=== PATIENT | female | born 1945 | race Caucasian/White ===

== ENCOUNTER 2022-06-08 20:54 | Emergency (ER) | payer MEDICARE, OTHER ==
[2022-06-08 22:47] LABS: ALT (SGPT) 7 U/L (8-55); AST (SGOT) 20 U/L (5-34); Albumin 3.9 g/dL (3.4-4.8); Alkaline Phosphatase 117 U/L (40-110); Anion Gap 14 mmol/L (10-20); BUN (Urea Nitrogen) 9 mg/dL (9.8-20.1); Bilirubin, Total 1.1 mg/dL (0.2-1.2); Calc. Creatinine Clearance 0 mL/min (70-130); Carbon Dioxide 32 mmol/L (23-31); Chloride 101 mmol/L (98-107); Estimated GFR 73; Globulin 3.8 g/dL (2.4-3.5); Glucose 116 mg/dL (83-110); Lipase 47 U/L (8-78); Potassium 3.2 mmol/L (3.5-5.1); Protein, Total 7.7 g/dL (5.8-8.1); Sodium 144 mmol/L (136-145)
[2022-06-08 22:52] LABS: #Eosinphils 0.1 thou/uL (0.0-0.7); #Lymphocytes 2.1 thou/uL (1.20-3.40); #Monocytes 0.7 thou/uL (0.11-0.59); #Neutrophils 4.8 thou/uL (1.40-6.50); %Basophils 0.4 % (0.0-1.0); %Eosinophils 1.7 % (0.0-10.0); %Lymphocytes 27.2 % (21.0-51.0); %Monocytes 8.7 % (0.0-10.0); %Neutrophils 61.9 % (42.0-75.0); Hemoglobin 16.2 g/dL (12.0-16.0); Mean Corpuscular HGB CONC 33.7 g/dL (32.0-36.0); Mean Platelet Volume 7.9 fL (7.4-10.4); Platelet Count 241 10x3/uL (130-400); RBC Distribution Width 12.7 % (11.5-14.5); Red Blood Cell (RBC) Count 5.22 mill/uL (4.20-5.40); White Blood Cell (WBC) Count 7.8 10x3/uL (4.8-10.8)
== END 2022-06-09 00:03 | disposition home or self-care (01) ==
LOC: ERS 20:54
DX: L03.115 Cellulitis of right lower limb (principal); I10 Essential (primary) hypertension; Z79.01 Long term (current) use of anticoagulants
CPT/HCPCS: 36415; 80053; 83690; 85025; 87040

== ENCOUNTER 2022-06-14 15:47 | Inpatient (IN) | payer MEDICARE, OTHER ==
[2022-06-14] MEDS ORDERED: Ketorolac Tromethamine 30 MG/ML VIAL ONE (16:34)
[2022-06-14] MEDS ORDERED: Metoprolol Tartrate 5 MG/5 ML VIAL ONE (16:34)
[2022-06-14] MEDS ORDERED: Magnesium 2 GM/50 ML BAG (IN WATER) ONE (16:34)
[2022-06-14 16:37] LABS: #Basophils 0.1 thou/uL (0.0-0.2); #Monocytes 1.1 thou/uL (0.11-0.59); %Basophils 0.4 % (0.0-1.0); %Eosinophils 0.3 % (0.0-10.0); %Lymphocytes 12.5 % (21.0-51.0); %Monocytes 7.2 % (0.0-10.0); %Neutrophils 79.2 % (42.0-75.0); Hemoglobin 16.1 g/dL (12.0-16.0); Mean Corpuscular HGB CONC 33.2 g/dL (32.0-36.0); Mean Corpuscular Volume 90.3 fl (78.0-98.0); Mean Platelet Volume 9.9 fL (7.4-10.4); Platelet Count 239 10x3/uL (130-400); RBC Distribution Width 13.2 % (11.5-14.5); Red Blood Cell (RBC) Count 5.37 mill/uL (4.20-5.40); White Blood Cell (WBC) Count 15.1 10x3/uL (4.8-10.8)
[2022-06-14 17:07] LABS: ALT (SGPT) 9 U/L (8-55); AST (SGOT) 22 U/L (5-34); Albumin 4.1 g/dL (3.4-4.8); Alkaline Phosphatase 132 U/L (40-110); Anion Gap 18 mmol/L (10-20); BUN (Urea Nitrogen) 7 mg/dL (9.8-20.1); Bilirubin, Total 1.5 mg/dL (0.2-1.2); Calc. Creatinine Clearance 0 mL/min (70-130); Calcium 10.2 mg/dL (7.8-10.44); Carbon Dioxide 27 mmol/L (23-31); Chloride 101 mmol/L (98-107); Estimated GFR 66; Globulin 4.4 g/dL (2.4-3.5); Glucose 145 mg/dL (83-110); Magnesium 1.4 mg/dL (1.6-2.6); Potassium 3.9 mmol/L (3.5-5.1); Protein, Total 8.5 g/dL (5.8-8.1); Sodium 142 mmol/L (136-145)
[2022-06-14 17:19] LABS: INR-International Normal Ratio 1.3; PTT 33.5 sec (22.9-36.1); Prothrombin Time 17.2 sec (12.0-14.7)
[2022-06-14 17:22] LABS: D-Dimer Test 1.02 *mcg/mL (0.27-0.43)
[2022-06-14] MEDS ORDERED: Vancomycin 1 GM/200 ML (FROZEN) BAG ONE (18:02)
[2022-06-14] MEDS ORDERED: Ondansetron PF 4 MG/2 ML Vial IVP PRN (18:47)
[2022-06-14] MEDS ORDERED: Senokot S 8.6-50 MG TAB PO PRN (18:47)
[2022-06-14] MEDS ORDERED: Calcium Carbonate 500 MG ChewTAB PO PRN (18:47)
[2022-06-14] MEDS ORDERED: Ondansetron ODT 4 MG TAB PO PRN (18:47)
[2022-06-14] MEDS ORDERED: cefTRIAXone (ROCEPHIN) 2 GM VIAL ONE (20:28)
[2022-06-14 20:54] LABS: CKMB 0.6 ng/mL (0-6.6)
[2022-06-14] MEDS ORDERED: Sodium Chloride 0.9% 1,000 ML IV SCH (21:15)
[2022-06-14] MEDS: Apixaban 5 MG TAB PO SCH (22:15)
[2022-06-14 22:25] VITALS: BMI 33.0
[2022-06-15 00:19] LABS: Lactic Acid 3.1 mmol/L (0.5-2.2)
[2022-06-15] MEDS ORDERED: Ibuprofen 200 MG TAB PO SCH (01:00)
[2022-06-15] MEDS ORDERED: Sodium Chloride 0.9% 1,000 ML IV SCH (01:00)
[2022-06-15 04:53] LABS: #Basophils 0.1 thou/uL (0.0-0.2); #Monocytes 1.5 thou/uL (0.11-0.59); #Neutrophils 10.7 thou/uL (1.40-6.50); %Basophils 0.4 % (0.0-1.0); %Eosinophils 0.1 % (0.0-10.0); %Lymphocytes 14.4 % (21.0-51.0); %Monocytes 10.5 % (0.0-10.0); %Neutrophils 74.1 % (42.0-75.0); Hemoglobin 13.7 g/dL (12.0-16.0); Mean Corpuscular HGB CONC 32.4 g/dL (32.0-36.0); Mean Corpuscular Hemoglobin 29.3 pg (27.0-31.0); Mean Corpuscular Volume 90.4 fl (78.0-98.0); Mean Platelet Volume 10.3 fL (7.4-10.4); Platelet Count 229 10x3/uL (130-400); RBC Distribution Width 13.2 % (11.5-14.5); Red Blood Cell (RBC) Count 4.68 mill/uL (4.20-5.40); White Blood Cell (WBC) Count 14.4 10x3/uL (4.8-10.8)
[2022-06-15 05:09] LABS: Lactic Acid 1.2 mmol/L (0.5-2.2)
[2022-06-15 05:16] LABS: ALT (SGPT) 8 U/L (8-55); AST (SGOT) 17 U/L (5-34); Albumin 3.3 g/dL (3.4-4.8); Alkaline Phosphatase 111 U/L (40-110); Anion Gap 13 mmol/L (10-20); BUN (Urea Nitrogen) 7 mg/dL (9.8-20.1); Bilirubin, Total 1.4 mg/dL (0.2-1.2); Calc. Creatinine Clearance 97 mL/min (70-130); Calcium 8.8 mg/dL (7.8-10.44); Carbon Dioxide 27 mmol/L (23-31); Chloride 104 mmol/L (98-107); Estimated GFR 89; Globulin 3.5 g/dL (2.4-3.5); Glucose 134 mg/dL (83-110); Magnesium 1.7 mg/dL (1.6-2.6); Potassium 2.8 mmol/L (3.5-5.1); Protein, Total 6.8 g/dL (5.8-8.1); Sodium 141 mmol/L (136-145)
[2022-06-15] MEDS ORDERED: Potassium Chloride 20 MEQ TAB PO SCH ×2 (08:00→15:45)
[2022-06-15] MEDS ORDERED: Electrolyte Replacement Protocol FS PRN (08:00)
[2022-06-15] MEDS ORDERED: Magnesium 2 GM/50 ML(in water) 2 GM in Premix Bag 1 BAG IVPB SCH (08:00)
[2022-06-15] MEDS ORDERED: Electrolyte Replacement Protocol 1 EACH FS SCH (08:00)
[2022-06-15] MEDS: Furosemide 20 MG TAB PO SCH (08:43)
[2022-06-15] MEDS: Anastrozole 1 MG TAB PO SCH (08:43)
[2022-06-15] MEDS: Apixaban 5 MG TAB PO SCH ×2 (08:43→20:53)
[2022-06-15] MEDS ORDERED: Lisinopril 20 MG TAB PO SCH (09:00)
[2022-06-15] MEDS: Potassium Chloride 20 MEQ in Premix Bag 1 BAG IVPB SCH ×2 (09:36→14:48)
[2022-06-15] MEDS: VANCOMYCIN 1.25 GM/250 ML BAG 1.25 GM in Premix Bag 1 BAG IVPB SCH (09:36)
[2022-06-15 16:13] LABS: Potassium 3.5 mmol/L (3.5-5.1)
[2022-06-15] MEDS: Ibuprofen 100 MG/5 ML UDCUP PO PRN ×2 (16:21→23:58)
[2022-06-15] MEDS: cefTRIAXone\\ROCEPHIN 1 GM in Sodium Chloride 0.9% 100 ML IVPB SCH (17:43)
[2022-06-15] MEDS: cloNIDine 0.1 MG TAB PO PRN ×2 (17:43→23:58)
[2022-06-15] MEDS: Oxybutynin 5 MG TAB PO SCH (20:53)
[2022-06-15] MEDS: Acetaminophen 325 MG TAB PO PRN (22:07)
[2022-06-16 04:36] LABS: #Basophils 0.1 thou/uL (0.0-0.2); #Eosinphils 0.1 thou/uL (0.0-0.7); #Monocytes 1.3 thou/uL (0.11-0.59); #Neutrophils 10.1 thou/uL (1.40-6.50); %Basophils 0.5 % (0.0-1.0); %Eosinophils 0.5 % (0.0-10.0); %Lymphocytes 14.3 % (21.0-51.0); %Monocytes 9.9 % (0.0-10.0); %Neutrophils 74.3 % (42.0-75.0); Hemoglobin 14.3 g/dL (12.0-16.0); Mean Corpuscular HGB CONC 32.3 g/dL (32.0-36.0); Mean Corpuscular Volume 89.9 fl (78.0-98.0); Mean Platelet Volume 10.3 fL (7.4-10.4); Platelet Count 207 10x3/uL (130-400); RBC Distribution Width 13.3 % (11.5-14.5); Red Blood Cell (RBC) Count 4.93 mill/uL (4.20-5.40); White Blood Cell (WBC) Count 13.6 10x3/uL (4.8-10.8)
[2022-06-16 04:58] LABS: Anion Gap 12 mmol/L (10-20); BUN (Urea Nitrogen) 10 mg/dL (9.8-20.1); Calc. Creatinine Clearance 91 mL/min (70-130); Calcium 9.1 mg/dL (7.8-10.44); Carbon Dioxide 25 mmol/L (23-31); Chloride 108 mmol/L (98-107); Estimated GFR 82; Glucose 152 mg/dL (83-110); Magnesium 1.8 mg/dL (1.6-2.6); Potassium 3.8 mmol/L (3.5-5.1); Sodium 141 mmol/L (136-145)
[2022-06-16] MEDS ORDERED: Magnesium 2 GM/50 ML(in water) 2 GM in Premix Bag 1 BAG IVPB SCH (08:00)
[2022-06-16] MEDS ORDERED: NIFEdipine XL 60 MG TAB PO SCH (09:00)
[2022-06-16] MEDS: VANCOMYCIN 1.25 GM/250 ML BAG 1.25 GM in Premix Bag 1 BAG IVPB SCH (09:57)
[2022-06-16] MEDS: Anastrozole 1 MG TAB PO SCH (09:58)
[2022-06-16] MEDS: Lisinopril 20 MG TAB PO SCH ×2 (09:58→21:06)
[2022-06-16] MEDS: Apixaban 5 MG TAB PO SCH ×2 (09:58→21:06)
[2022-06-16] MEDS: Furosemide 20 MG TAB PO SCH (09:58)
[2022-06-16] MEDS ORDERED: Furosemide 20 MG/2 ML VIAL SLOW IVP SCH (12:00)
[2022-06-16] MEDS ORDERED: Potassium Chloride 20 MEQ TAB PO SCH (12:00)
[2022-06-16] MEDS: cefTRIAXone\\ROCEPHIN 1 GM in Sodium Chloride 0.9% 100 ML IVPB SCH (17:33)
[2022-06-16] MEDS: Oxybutynin 5 MG TAB PO SCH (21:07)
[2022-06-16] MEDS: Ketorolac Tromethamine 30 MG/ML VIAL IVP PRN (21:07)
[2022-06-17 04:41] LABS: #Basophils 0.1 thou/uL (0.0-0.2); #Eosinphils 0.2 thou/uL (0.0-0.7); #Neutrophils 9.9 thou/uL (1.40-6.50); %Basophils 0.5 % (0.0-1.0); %Eosinophils 1.4 % (0.0-10.0); %Lymphocytes 12.6 % (21.0-51.0); Hemoglobin 14.1 g/dL (12.0-16.0); Mean Corpuscular HGB CONC 31.8 g/dL (32.0-36.0); Mean Corpuscular Hemoglobin 30.4 pg (27.0-31.0); Mean Platelet Volume 10.4 fL (7.4-10.4); Platelet Count 216 10x3/uL (130-400); RBC Distribution Width 13.6 % (11.5-14.5); Red Blood Cell (RBC) Count 4.64 mill/uL (4.20-5.40); White Blood Cell (WBC) Count 12.9 10x3/uL (4.8-10.8)
[2022-06-17 04:56] LABS: Mean Corpuscular Volume 95.5 fl (78.0-98.0)
[2022-06-17 05:08] LABS: Anion Gap 13 mmol/L (10-20); BUN (Urea Nitrogen) 18 mg/dL (9.8-20.1); Calc. Creatinine Clearance 82 mL/min (70-130); Calcium 9.2 mg/dL (7.8-10.44); Carbon Dioxide 22 mmol/L (23-31); Chloride 105 mmol/L (98-107); Estimated GFR 73; Glucose 197 mg/dL (83-110); Potassium 4.5 mmol/L (3.5-5.1); Sodium 135 mmol/L (136-145)
[2022-06-17] MEDS: Ketorolac Tromethamine 30 MG/ML VIAL IVP PRN (05:49)
[2022-06-17] MEDS ORDERED: Furosemide 20 MG/2 ML VIAL SLOW IVP SCH (06:15)
[2022-06-17 08:14] LABS: Vancomycin, Trough 9.2 ug/mL
[2022-06-17] MEDS: Anastrozole 1 MG TAB PO SCH (09:29)
[2022-06-17] MEDS: Lisinopril 20 MG TAB PO SCH ×2 (09:29→20:27)
[2022-06-17] MEDS: Apixaban 5 MG TAB PO SCH ×2 (09:30→20:27)
[2022-06-17] MEDS: NIFEdipine XL 30 MG TAB PO SCH (09:30)
[2022-06-17] MEDS: Furosemide 20 MG TAB PO SCH (09:30)
[2022-06-17] MEDS: Vancomycin 1.5 GRAM/300 ML BAG 1.5 GM in Premix Bag 1 BAG IVPB SCH (09:31)
[2022-06-17] MEDS: Acetaminophen 325 MG TAB PO PRN (13:47)
[2022-06-17] MEDS ORDERED: predniSONE 20 MG TAB PO SCH (14:15)
[2022-06-17] MEDS ORDERED: Colchicine 0.6 MG TAB PO SCH (14:15)
[2022-06-17] MEDS: cefTRIAXone\\ROCEPHIN 1 GM in Sodium Chloride 0.9% 100 ML IVPB SCH (17:13)
[2022-06-17] MEDS: Oxybutynin 5 MG TAB PO SCH (20:27)
[2022-06-18] MEDS: Apixaban 5 MG TAB PO SCH ×2 (09:05→21:13)
[2022-06-18] MEDS: NIFEdipine XL 30 MG TAB PO SCH (09:05)
[2022-06-18] MEDS: Vancomycin 1.5 GRAM/300 ML BAG 1.5 GM in Premix Bag 1 BAG IVPB SCH (09:06)
[2022-06-18] MEDS: Lisinopril 20 MG TAB PO SCH ×2 (09:06→21:13)
[2022-06-18] MEDS: Anastrozole 1 MG TAB PO SCH (09:06)
[2022-06-18] MEDS ORDERED: Colchicine 0.6 MG TAB PO SCH (13:30)
[2022-06-18] MEDS: cefTRIAXone\\ROCEPHIN 1 GM in Sodium Chloride 0.9% 100 ML IVPB SCH (17:48)
[2022-06-18] MEDS: Oxybutynin 5 MG TAB PO SCH (21:12)
[2022-06-18] MEDS: Colchicine 0.6 MG TAB PO SCH (21:13)
[2022-06-18] MEDS: Ketorolac Tromethamine 30 MG/ML VIAL IVP PRN (23:58)
[2022-06-19 08:10] LABS: Vancomycin, Trough 8.7 ug/mL
[2022-06-19] MEDS: Ketorolac Tromethamine 30 MG/ML VIAL IVP PRN (09:17)
[2022-06-19] MEDS: Apixaban 5 MG TAB PO SCH ×2 (09:17→20:33)
[2022-06-19] MEDS: Lisinopril 20 MG TAB PO SCH ×2 (09:22→20:31)
[2022-06-19] MEDS: Colchicine 0.6 MG TAB PO SCH ×2 (09:23→20:33)
[2022-06-19] MEDS: NIFEdipine XL 30 MG TAB PO SCH (09:24)
[2022-06-19] MEDS: VANCOMYCIN 1.25 GM/250 ML BAG 1.25 GM in Premix Bag 1 BAG IVPB SCH ×2 (09:24→20:34)
[2022-06-19] MEDS: Anastrozole 1 MG TAB PO SCH (09:24)
[2022-06-19] MEDS ORDERED: predniSONE 20 MG TAB PO SCH (11:00)
[2022-06-19] MEDS ORDERED: NIFEdipine XL 30 MG TAB PO SCH (17:00)
[2022-06-19] MEDS: cefTRIAXone\\ROCEPHIN 1 GM in Sodium Chloride 0.9% 100 ML IVPB SCH (17:52)
[2022-06-19] MEDS: Lidocaine 4% Patch TD SCH (17:53)
[2022-06-19] MEDS: Pantoprazole 40 MG GRANULES PACKET PO SCH (20:34)
[2022-06-19] MEDS: Oxybutynin 5 MG TAB PO SCH (20:34)
[2022-06-20] MEDS: Transdermal Patch Removal TOP SCH (06:42)
[2022-06-20] MEDS ORDERED: Lidocaine 4% Patch TD SCH (09:00)
[2022-06-20] MEDS: predniSONE 20 MG TAB PO SCH (10:44)
[2022-06-20] MEDS: Lisinopril 20 MG TAB PO SCH ×2 (10:46→22:12)
[2022-06-20] MEDS: Apixaban 5 MG TAB PO SCH ×2 (10:46→22:12)
[2022-06-20] MEDS: Anastrozole 1 MG TAB PO SCH (10:46)
[2022-06-20] MEDS: VANCOMYCIN 1.25 GM/250 ML BAG 1.25 GM in Premix Bag 1 BAG IVPB SCH (10:50)
[2022-06-20] MEDS: NIFEdipine XL 60 MG TAB PO SCH (10:51)
[2022-06-20] MEDS: Colchicine 0.6 MG TAB PO SCH ×2 (10:52→22:15)
[2022-06-20] MEDS: cefTRIAXone\\ROCEPHIN 1 GM in Sodium Chloride 0.9% 100 ML IVPB SCH (17:36)
[2022-06-20] MEDS: Lidocaine 4% Patch TD SCH (17:37)
[2022-06-20] MEDS: Pantoprazole 40 MG GRANULES PACKET PO SCH (22:12)
[2022-06-20] MEDS: Cefdinir 300 MG CAP PO SCH (22:12)
[2022-06-20] MEDS: Oxybutynin 5 MG TAB PO SCH (22:15)
[2022-06-21 05:10] LABS: #Basophils 0.1 thou/uL (0.0-0.2); #Eosinphils 0.3 thou/uL (0.0-0.7); #Monocytes 1.5 thou/uL (0.11-0.59); #Neutrophils 9.1 thou/uL (1.40-6.50); %Basophils 0.5 % (0.0-1.0); %Eosinophils 2.4 % (0.0-10.0); %Lymphocytes 17.7 % (21.0-51.0); %Monocytes 10.7 % (0.0-10.0); %Neutrophils 67.6 % (42.0-75.0); Hemoglobin 14.8 g/dL (12.0-16.0); Mean Corpuscular HGB CONC 32.2 g/dL (32.0-36.0); Mean Corpuscular Hemoglobin 29.4 pg (27.0-31.0); Mean Corpuscular Volume 91.3 fl (78.0-98.0); Mean Platelet Volume 9.7 fL (7.4-10.4); Platelet Count 349 10x3/uL (130-400); RBC Distribution Width 13.3 % (11.5-14.5); Red Blood Cell (RBC) Count 5.03 mill/uL (4.20-5.40); White Blood Cell (WBC) Count 13.5 10x3/uL (4.8-10.8)
[2022-06-21 05:24] LABS: Anion Gap 11 mmol/L (10-20); BUN (Urea Nitrogen) 13 mg/dL (9.8-20.1); Calc. Creatinine Clearance 97 mL/min (70-130); Calcium 9.5 mg/dL (7.8-10.44); Carbon Dioxide 30 mmol/L (23-31); Chloride 102 mmol/L (98-107); Estimated GFR 90; Glucose 137 mg/dL (83-110); Magnesium 1.6 mg/dL (1.6-2.6); Potassium 3.3 mmol/L (3.5-5.1); Sodium 140 mmol/L (136-145)
[2022-06-21] MEDS: Transdermal Patch Removal TOP SCH (06:05)
[2022-06-21] MEDS ORDERED: Magnesium 2 GM/50 ML(in water) 2 GM in Premix Bag 1 BAG IVPB SCH (08:00)
[2022-06-21] MEDS ORDERED: Potassium Chloride 20 MEQ TAB PO SCH (08:00)
[2022-06-21] MEDS: predniSONE 20 MG TAB PO SCH (08:54)
[2022-06-21] MEDS: Lisinopril 20 MG TAB PO SCH (08:54)
[2022-06-21] MEDS: Cefdinir 300 MG CAP PO SCH (08:54)
[2022-06-21] MEDS: Apixaban 5 MG TAB PO SCH (08:54)
[2022-06-21] MEDS: NIFEdipine XL 60 MG TAB PO SCH (08:55)
[2022-06-21] MEDS: Anastrozole 1 MG TAB PO SCH (08:55)
[2022-06-21] MEDS: Colchicine 0.6 MG TAB PO SCH (08:55)
[2022-06-21 11:28] VITALS: TEMP 97.9
[2022-06-21 12:35] VITALS: BP 135/70
== END 2022-06-21 11:57 | disposition home health service (06) | DRG 871 ==
LOC: ERS 15:47 → 2NO 18:09 → OBSVTOIN 06-15 11:13
PROVIDERS: ADMIT Internal Medicine; ATTEND Internal Medicine
DX: A41.9 Sepsis, unspecified organism (principal); I50.33 Acute on chronic diastolic (congestive) heart failure; L03.115 Cellulitis of right lower limb; E87.20 Acidosis, unspecified; E87.1 Hypo-osmolality and hyponatremia; I48.11 Longstanding persistent atrial fibrillation; Q21.0 Ventricular septal defect; M10.9 Gout, unspecified; R65.20 Severe sepsis without septic shock; I11.0 Hypertensive heart disease with heart failure; E66.9 Obesity, unspecified; E87.6 Hypokalemia; E83.42 Hypomagnesemia; R79.89 Other specified abnormal findings of blood chemistry; Z79.01 Long term (current) use of anticoagulants; Z90.710 Acquired absence of both cervix and uterus; Z98.890 Other specified postprocedural states; Z88.5 Allergy status to narcotic agent; Z68.32 Body mass index [BMI] 32.0-32.9, adult
CPT/HCPCS: 36415; 71045; 80048; 80053; 80202; 82553; 82565; 83605; 83735; 83880; 84443; 84484; 84550; 85025; 85379; 85610; 85730; 87040; 93005; 96365; 96366; 96367; 96375; 96376; G0378; J0696; J1885; J1940; J3370; J3370-JW; J3475; J3480; J3490; J7050; J7512